=== PATIENT | male | born 1955 | race Caucasian/White ===

== ENCOUNTER → 2018-10-24 | Outpatient (CLI) | payer MEDICARE ==
--- NOTE | 2018-10-24 16:03 | RADIOLOGY REPORT (SQ) ---
EXAM DESCRIPTION: CT HEAD WITHOUT COMPLETED DATE/TIME: 10/24/2018 3:10 pm REASON FOR STUDY: PARESTHESIA OF SKIN (R20.2) R20.2 PARESTHESIA OF SKIN COMPARISON: None. TECHNIQUE: Axial images acquired through the brain without intravenous contrast. Images reviewed wi th bone, brain and subdural windows. Images stored on PACS. All CT scanners at this facility use dose modulation, iterative reconstruction, and/or weight based d osing when appropriate to reduce radiation dose to as low as reasonably achievable (ALARA). [facility]: Dose Right [facility]: CareDose [facility]: Dose Right [facility]: Teradose 4D [facility]: Hotlist RADIATION DOSE: CT Rad equipment meets quality standard of care and radiation dose reduction techniq ues were employed. CTDIvol: 48.5 mGy. DLP: 855 mGy-cm. mGy. LIMITATIONS: None. FINDINGS: VENTRICLES: Prominent. CEREBRUM: No masses. No hemorrhage. No midline shift. Old lacunar infarct right internal capsule. Areas of low density in the white matter most likely due to chronic micro-vascular ischemic change. No evidence for acute infarction. CEREBELLUM: No masses. No hemorrhage. No alteration of density. No evidence for acute infarction. EXTRAAXIAL SPACES: Mild age-related involutional change. No fluid collections. No masses. ORBITS AND GLOBE: No intra- or extraconal masses. Normal contour of globe without masses. CALVARIUM: No fracture. PARANASAL SINUSES: No fluid or mucosal thickening. SOFT TISSUES: No mass or hematoma. OTHER: No other significant finding. IMPRESSION: Chronic ischemic changes. EVIDENCE OF ACUTE STROKE: NO. TECHNICAL DOCUMENTATION: JOB ID: [id number] Quality ID # [id number]: Final reports with documentation of one or more dose reduction techniques (e.g., Au tomated exposure control, adjustment of the mA and/or kV according to patient size, use of iterative reconstruction technique) 2010 [employer]- All Rights Reserved Reading location - IP/workstation name: [email or web address]
== END ==
LOC: RAD 14:55
PROVIDERS: ATTEND Chiropractor
DX: R20.2 Paresthesia of skin (principal)
CPT/HCPCS: 70450

== ENCOUNTER 2018-11-01 19:09 | Inpatient (IN) | payer MEDICARE ==
[2018-11-01] MEDS ORDERED: LORAZEPAM INJ 2 MG/1 ML VIAL IV ONE (20:05)
[2018-11-01] MEDS ORDERED: NORMAL SALINE 1000 ML 1,000 ML IV ONE ×2 (20:05→22:28)
--- NOTE | 2018-11-01 20:06 | ER Document Report ---
ED Medical Screen (RME) - General Chief Complaint: Headache Stated Complaint: BLOOD PRESSEURE AND SUGAR ISSUES Time Seen by Provider: 11/01/18 19:56 Primary Care Provider: SALVADOR BOGGS DC [Primary Care Provider] - Follow up as needed Notes: 63 years old presents today with numbness and tingling sensation of the entire right half of the body for the last [address] scan done on the which was reported as negative. And also presents with elevated blood pressure and blood sugar. He appears to be very anxious. TRAVEL OUTSIDE OF THE [place] IN LAST 30 DAYS: No - Related Data Allergies/Adverse Reactions: No Known Allergies Allergy (Unverified 04/02/15 21:53) Past Medical History - Social History Chew tobacco use (# tins/day): No Frequency of alcohol use: None Drug Abuse: None - Past Medical History Cardiac Medical History: Reports: Hx Hypertension Endocrine Medical History: Reports: Hx Diabetes Mellitus Type 2 Renal/ Medical History: Denies: Hx Peritoneal Dialysis Past Surgical History: Reports: Hx Oral Surgery, Hx Orthopedic Surgery - knee Physical Exam - Vital signs Vitals: Temp Pulse Resp BP Pulse Ox 97.5 F 91 18 176/80 H 100 11/01/18 19:22 11/01/18 19:22 11/01/18 19:22 11/01/18 19:22 11/01/18 19:22 Course - Vital Signs Vital signs: Temp Pulse Resp BP Pulse Ox 97.5 F 91 18 176/80 H 100 11/01/18 19:22 11/01/18 19:22 11/01/18 19:22 11/01/18 19:22 11/01/18 19:22 Doctor's Discharge - Discharge Referrals: SALVADOR BOGGS DC [Primary Care Provider] - Follow up as needed
[2018-11-01 21:28] LABS: ABSOLUTE BASOPHILS # (AUTO) 0.1 10^3/uL (0.0-0.2); ABSOLUTE EOSINOPHILS # (AUTO) 0.2 10^3/uL (0.0-0.6); ABSOLUTE LYMPHOCYTES (AUTO) 2.3 10^3/uL (0.5-4.7); ABSOLUTE MONOCYTES (AUTO) 0.8 10^3/uL (0.1-1.4); BASOPHILS % (AUTO) 0.8 % (0-2); EOSINOPHILS % (AUTO) 1.7 % (0-6); HEMATOCRIT 45.7 % (37.9-51.0); HEMOGLOBIN 15.6 g/dL (13.5-17.0); LYMPHOCYTES % (AUTO) 24.8 % (13-45); MEAN CORPUSCULAR HEMOGLOBIN 27.4 pg (27.0-33.4); MEAN CORPUSCULAR HGB CONC 34.1 g/dL (32.0-36.0); MEAN CORPUSCULAR VOLUME 80 fl (80-97); MONOCYTES % (AUTO) 8.3 % (3-13); PLATELET COUNT 287 10^3/uL (150-450); RED CELL DISTRIBUTION WIDTH 14.2 % (11.5-14.0); SEGMENTED NEUTROPHILS % (AUTO) 64.4 % (42-78); TOTAL CELLS COUNTED % (AUTO) 100 %; WHITE BLOOD COUNT 9.2 10^3/uL (4.0-10.5)
[2018-11-01 21:33] LABS: APPEARANCE,URINE CLEAR; BILIRUBIN,URINE NEGATIVE (NEGATIVE); COLOR,URINE STRAW; GLUCOSE, URINE 50 mg/dL (NEGATIVE); KETONES,URINE TRACE mg/dL (NEGATIVE); LEUKOCYTE ESTERASE,URINE NEGATIVE (NEGATIVE); NITRITE,URINE NEGATIVE (NEGATIVE); PROTEIN,URINE >=500 mg/dL (NEGATIVE); URINE SPECIFIC GRAVITY 1.014; UROBILINOGEN,URINE NEGATIVE mg/dL (<2.0)
[2018-11-01 21:45] LABS: ALANINE AMINOTRANSFERASE 15 U/L (21-72); ALBUMIN 4.7 g/dL (3.5-5.0); ALKALINE PHOSPHATASE 57 U/L (38-126); ANION GAP 13 (5-19); ASPARTATE AMINO TRANSFERASE 23 U/L (17-59); BILIRUBIN,DIRECT 0.3 mg/dL (0.0-0.4); BILIRUBIN,TOTAL 0.4 mg/dL (0.2-1.3); BLOOD UREA NITROGEN 15 mg/dL (7-20); CALCIUM 10.3 mg/dL (8.4-10.2); CARBON DIOXIDE 28 mmol/L (22-30); CHLORIDE 97 mmol/L (98-107); GLUCOSE 175 mg/dL (75-110); POTASSIUM 4.7 mmol/L (3.6-5.0); SODIUM 137.8 mmol/L (137-145); TOTAL PROTEIN 7.5 g/dL (6.3-8.2)
[2018-11-01] MEDS ORDERED: METOCLOPRAMIDE HCL INJ/PF 10 MG/2 ML SDV IV ONE (22:27)
[2018-11-01] MEDS ORDERED: DIPHENHYDRAMINE HCL 50 MG/ML VIAL IV ONE (22:28)
[2018-11-01] MEDS ORDERED: LOSARTAN POTASSIUM 50 MG TABLET PO ONE (22:29)
[2018-11-01] MEDS ORDERED: MECLIZINE HCL 25 MG TABLET PO ONE (22:33)
--- NOTE | 2018-11-01 22:34 | ER Document Report ---
ED General - General Chief Complaint: Headache Stated Complaint: BLOOD PRESSEURE AND SUGAR ISSUES Time Seen by Provider: 11/01/18 19:56 Mode of Arrival: Ambulatory Information source: Patient, Relative, [facility] Records Notes: 63-year-old male with hypertension, type 2 diabetes presents with multiple complaints including right-sided numbness, dizziness, right-sided headache, nausea and generalized abdominal pain. Patient states that his right-sided numbness occurred 3 weeks ago and has been present since that time. Patient has been seen by his chiropractor and primary care physician for this and was recently prescribed gabapentin but has yet to fill his prescription. Patient did have a recent CAT scan of his head and cervical fine which he reports to be negative. Patient denies any fever, chills, slurred speech, difficulty with ambulation, weakness, recent illness. Prior to my exam patient did receive IV fluids and Ativan and reports an improvement of headache initially but it has returned. He describes it as a constant throbbing headache located behind his right eye. He denies any visual changes. Patient has yet to take his blood pressure medication. TRAVEL OUTSIDE OF THE [place] IN LAST 30 DAYS: No - HPI Onset: Other Onset/Duration: Gradual, Persistent Quality of pain: Stabbing Severity: Mild Associated symptoms: Headache, Nausea. denies: Chest pain, Chills, Nonproductive cough, Productive cough, Diarrhea, Earache, Fever, Hurts to breath, Vomiting, Shortness of breath, Sore throat, Weakness Exacerbated by: Denies Relieved by: Denies Similar symptoms previously: Yes Recently seen / treated by doctor: Yes - Related Data Allergies/Adverse Reactions: No Known Allergies Allergy (Unverified 04/02/15 21:53) Past Medical History - General Information source: Patient, Relative, [facility] Records - Social History Smoking Status: Never Smoker Chew tobacco use (# tins/day): No Frequency of alcohol use: None Drug Abuse: None Family History: Reviewed & Not Pertinent Patient has suicidal ideation: No Patient has homicidal ideation: No - Past Medical History Cardiac Medical History: Reports: Hx Hypertension Endocrine Medical History: Reports: Hx Diabetes Mellitus Type 2 Renal/ Medical History: Denies: Hx Peritoneal Dialysis Past Surgical History: Reports: Hx Oral Surgery, Hx Orthopedic Surgery - knee Review of Systems - Review of Systems Constitutional: denies: Fever, Weakness, Recent illness EENT: denies: Blurred vision, Throat pain, Difficulty swallowing Cardiovascular: Dizziness. denies: Chest pain, Palpitations, Syncope Gastrointestinal: Nausea, Poor appetite, Poor fluid intake. denies: Abdominal pain, Vomiting Genitourinary: denies: Dysuria, Flank pain Male Genitourinary: No symptoms reported Musculoskeletal: denies: Back pain, Muscle pain, Muscle stiffness, Ankle swelling Skin: denies: Rash Hematologic/Lymphatic: No symptoms reported Neurological/Psychological: Headaches, Numbness. denies: Confusion, Dementia, Weakness, Gait changes -: Yes All other systems reviewed and negative Physical Exam - Vital signs Vitals: Temp Pulse Resp BP Pulse Ox 97.5 F 91 18 176/80 H 100 11/01/18 19:22 11/01/18 19:22 11/01/18 19:22 11/01/18 19:22 11/01/18 19:22 Interpretation: Hypertensive - Notes Notes: PHYSICAL EXAMINATION: GENERAL: Well-appearing, well-nourished and in no acute distress. HEAD: Atraumatic, normocephalic. EYES: Pupils equal round and reactive to light, extraocular movements intact, sc aileen anicteric, conjunctiva are normal. ENT: Nares patent, oropharynx clear without exudates. Moist mucous membranes. NECK: Normal range of motion, supple without lymphadenopathy LUNGS: Breath sounds clear to auscultation bilaterally and equal. No wheezes rales or rhonchi. HEART: Regular rate and rhythm without murmurs ABDOMEN: Soft, nontender, nondistended abdomen. No guarding, no rebound. No masses appreciated. Musculoskeletal: Normal range of motion, no pitting or edema. No cyanosis. NEUROLOGICAL: Neuro exam Mental status; alert and oriented x3. Cranial nerves II through XII intact. Sensation intact to sharp/dull differentiation in all extremities. Motor; normal tone. No abnormal movements appreciated. No pronator drift. Strength tested and 5/5 in bilateral wrist flexion/extension, elbow flexion/extension, shoulder abduction, straight leg raise, knee flexion/extens ion, ankle dorsiflexion/plantar flexion. Patient ambulates with a steady gait. Coordination; no ataxia. Finger to nose and heel to martin testing intact bilaterally. Reflexes; brachial radialis, biceps, and patellar reflexes within normal limits and symmetric bilaterally. Babinski with downgoing toes bilaterally. NIH -0 PSYCH: Normal mood, normal affect. SKIN: Warm, Dry, normal turgor, no rashes or lesions noted. Course - Re-evaluation Re-evalutation: Laboratory 11/01/18 11/01/18 11/01/18 20:53 20:53 20:53 WBC 9.2 RBC 5.70 H Hgb 15.6 Hct 45.7 MCV 80 MCH 27.4 MCHC 34.1 RDW 14.2 H Plt Count 287 Seg Neutrophils % 64.4 Lymphocytes % 24.8 Monocytes % 8.3 Eosinophils % 1.7 Basophils % 0.8 Absolute Neutrophils 6.0 Absolute Lymphocytes 2.3 Absolute Monocytes 0.8 Absolute Eosinophils 0.2 Absolute Basophils 0.1 Sodium 137.8 Potassium 4.7 Chloride 97 L Carbon Dioxide 28 Anion Gap 13 BUN 15 Creatinine 0.63 Est GFR ( Amer) > 60 Est GFR (Non-Af Amer) > 60 Glucose 175 H Calcium 10.3 H Total Bilirubin 0.4 Direct Bilirubin 0.3 Neonat Total Bilirubin Not Reportable Neonat Direct Bilirubin Not Reportable Neonat Indirect Bili Not Reportable AST 23 ALT 15 L Alkaline Phosphatase 57 Total Protein 7.5 Albumin 4.7 Urine Color STRAW Urine Appearance CLEAR Urine pH 9.0 Ur Specific [place] 1.014 Urine Protein >=500 H Urine Glucose (UA) 50 H Urine Ketones TRACE H Urine Blood NEGATIVE Urine Nitrite NEGATIVE Urine Bilirubin NEGATIVE Urine Urobilinogen NEGATIVE Ur Leukocyte Esterase NEGATIVE Urine WBC (Auto) 3 Urine RBC (Auto) 15 Urine Mucus (Auto) RARE Urine Ascorbic Acid NEGATIVE Temp Pulse Resp BP Pulse Ox 97.5 F 91 18 176/80 H 100 11/01/18 19:22 11/01/18 19:22 11/01/18 19:22 11/01/18 19:22 11/01/18 19:22 Head MRI 11/01/18 22:28 IMPRESSION: 1. Acute lacunar infarction of the left posterior thalamus. 2. No acute intracranial hemorrhage. 3. Chronic microvascular ischemic disease. 11/01/18 22:35 63-year-old male presents with multiple complaints including right-sided numbness that has been present for 3 weeks, right-sided headache that has also been present for 3 weeks, nausea and abdominal discomfort as well as dizziness. Vital signs reviewed upon arrival and patient is hypertensive but admits to not taking his blood pressure medication today. Neuro exam was performed and NIH is 0. Patient has no focal abdominal tenderness, focal deficits. Previous medical records and nursing notes reviewed including recent imaging performed earlier this month. MRI pending 11/02/18 00:21 11/02/18 00:23 MRI obtained and significant for acute lacunar infarction of the left posterior thalamus. Discussed these findings with the patient who is agreeable to admission. Aspirin was administered. Patient's current blood pressure 193/92. Patient has been accepted by the hospitalist for the IMCU. - Vital Signs Vital signs: Temp Pulse Resp BP Pulse Ox 97.5 F 91 20 170/75 H 93 11/01/18 19:22 11/01/18 19:22 11/02/18 01:01 11/02/18 01:01 11/02/18 01:01 - Laboratory Result Diagrams: 11/01/18 20:53 11/01/18 20:53 Laboratory results interpreted by me: 11/01/18 11/01/18 11/01/18 20:53 20:53 20:53 RBC 5.70 H RDW 14.2 H Chloride 97 L Glucose 175 H Calcium 10.3 H ALT 15 L Urine Protein >=500 H Urine Glucose (UA) 50 H Urine Ketones TRACE H - Diagnostic Test Radiology reviewed: Image reviewed, Reports reviewed - EKG Interpretation by Me EKG shows normal: Sinus rhythm Rate: Normal Rhythm: NSR Heart block present: 1st Degree - T wave inversions in lead I and aVL which is unchanged from previous When compared to previous EKG there are: No significant change Discharge - Discharge Clinical Impression: Lacunar infarct, acute, Right-sided paresthesia, Nausea, Hyperglycemia, Elevated blood pressure reading Hypertension Qualifiers: Hypertension type: unspecified Qualified Code(s): I10 - Essential (primary) hypertension Condition: Good Disposition: ADMITTED INPATIENT Admitting Provider: Hospitalist Unit Admitted: IMCU ED NIH Stroke Scale - NIH Stroke Scale *: 1. NIH scale should be completed with appropriate accompanying assessment tools. *: 2. The NIH should reflect what the patient is capable of doing and should not be coached by the clinician. 1a. Level of Consciousness: 0=Alert;keenly responsive -: 1=Drowsy -: 2=Obtunded -: 3=Coma/unresponsive or reflex to noxious stimuli. 1a. Responses: 0 1b. Orientation Questions: a. What month is it? -: b. How old are you? -: 0=Answers both questions correctly. -: 1=Answers one question correctly or patient is intubated or has orotracheal trauma. -: 2=Answers neither question correctly. 1b. Responses: 0 1c. Response to commands: a. Open and close eyes? -: b. [employer] and release hand? -: Credit is given despite weakness. Demonstration of task is permitted. Substitute command if hands cannot be used. -: 0=Performs both tasks correctly -: 1=Performs one task correctly -: 2=Performs neither task correctly 1c. Responses: 0 2. Gaze: Establish eye contact and instruct patient to "Follow my finger" -: 0=Normal -: 1=Partial gaze palsy. Gaze is abnormal in one or both eyes, but where forced deviation or total gaze paresis is not present. -: 2=Forced deviation or total gaze paresis. 2. Responses: 0 3. Visual Goncalves: Sees fingers in all four quadrants. -: 0=No visual loss. -: 1=Partial hemianopsia. -: 2=Complete hemianopsia. -: 3=Bilateral hemianopsia (including Cortical blindness) 3. Responses: 0 4. Facial Movement: Instruct patient to: -: a. Show me your teeth -: b. Raise your eyebrows -: c. Close your eyes -: d. Smile -: 0=Normal symmetrical movement -: 1=Minor paralysis (flattened nasolabial fold, asymmetry on smiling). -: 2=Partial paralysis (total or near total paralysis of lower face). -: 3=Complete paralysis of upper and lower face 4. Responses: 0 5. Motor functions (left arm): Alternate sides and extend each arm with palms down (90 degrees if sitting or 45 degrees for supine). -: 0=No drift;limb holds for full 10 seconds. -: 1=Drift; limb holds but drifts down before full 10 seconds, but does not hit bed. -: 2=Some effort against gravity; limb cannot get to or maintain position. -: 3=No effort against gravity; limb falls. -: 4=No movement. -: UN=Amputation, joint fusion, explain in comments. 5. Responses (left arm): 0 5. Motor Functions (right arm): Alternate sides and extend each arm with palms down (90 degrees if sitting or 45 degrees for supine). -: 0=No drift;limb holds for full 10 seconds. -: 1=Drift; limb holds but drifts down before full 10 seconds, but does not hit bed. -: 2=Some effort against gravity; limb cannot get to or maintain position. -: 3=No effort against gravity; limb falls. -: 4=No movement. -: UN=Amputation, joint fusion, explain in comments. 5. Responses (right arm): 0 6. Motor Functions (left leg): With patient lying supine, alternate sides and extend each leg (30 degrees always while supine). -: 0=No drift, leg holds position for full 5 seconds -: 1=Drift; leg falls before full 5 seconds but does not hit bed. -: 2=Some effort against gravity, leg falls to bed but some effort against gravity. -: 3=No effort against gravity, leg falls to bed immediately. -: 4=No movement. -: UN=Amputation, joint fusion; explain in comments. 6. Responses (left leg): 0 6. Motor Functions (right leg): With patient lying supine, alternate sides and extend each leg (30 degrees always while supine). -: 0=No drift, leg holds position for full 5 seconds -: 1=Drift; leg falls before full 5 seconds but does not hit bed. -: 2=Some effort against gravity, leg falls to bed but some effort against gravity. -: 3=No effort against gravity, leg falls to bed immediately. -: 4=No movement. -: UN=Amputation, joint fusion; explain in comments. 6. Responses (right leg): 0 7. Limb Ataxia: With eyes open instruct patient to: -: a. "Touch your finger to your nose". -: b. "Touch your heel to your martin" -: 0=Absent -: 1=Present in one limb. -: 2=Present in two limbs. -: UN=Amputation or joint fusion; explain in comments. 7. Responses: 0 8. Sensory: Test sensation using pinprick or noxious stimuli. Test as many body parts as possible. -: 0=Normal;no sensory loss -: 1=Mile to moderate sensory loss (patient feels pin prick but is less sharp on affected side). -: 2=Severe or total sensory loss. 8. Responses: 0 9. Best Language: Instruct patient to: -: a. "Describe what you see in this picture." -: b. "Name the items in this picture." -: c. "Read these sentences." -: 0=No aphasia, normal -: 1=Mild to moderate aphasia. -: 2=Severe aphasia -: 3=Mute, global aphasia, no usable speech or auditory comprehension. 9. Responses: 0 10. Articulation, Dysarthia: Instruct patient to: -: "Read these words" or "Repeat these words" -: 0=Normal -: 1=Mild to moderate; patient may slur some words but can be understood without difficulty. -: 2=Severe; patients speech so slurred as to be unintelligible in the absence of dysphasia. -: UN=Intubated or other physical barrier, explain in comments. 10. Responses: 0 11. Extinction or inattention: 0=No abnormality -: 1= Visual, tactile, auditory, spatial, or personal inattention or extinction to bilateral simulation in one or the sensory modalities. -: 2=Profound dipika-inattention or dipika-inattention to more than one modality; does not recognize own hand. 11. Responses: 0 Total Score: 0
--- NOTE | 2018-11-01 23:45 | RADIOLOGY REPORT (SQ) ---
MR BRAIN WITHOUT IV CONTRAST HISTORY: Right-sided numbness. COMPARISON: None. TECHNIQUE: Multisequence, multiplanar MR imaging of the brain was performed without the administration of intravenous gadolinium. Motion artifact limits evaluation. FINDINGS: Diffuse involutional changes are present. There are scattered areas of T2/FLAIR hyperintense foci are seen in the supratentorial white matter, likely representing chronic microvascular ischemia. There is a focus of restricted diffusion in the left posterior thalamus consistent with acute lacunar infarction. There is no intracranial hemorrhage, extra-axial fluid collection, or mass. The brainstem, posterior fossa, and cervicomedullary junction are preserved. The intravascular flow voids are preserved. The orbits are unremarkable. No abnormality of the skull base or calvarium is seen. IMPRESSION: 1. Acute lacunar infarction of the left posterior thalamus. 2. No acute intracranial hemorrhage. 3. Chronic microvascular ischemic disease.
[2018-11-02] MEDS ORDERED: ASPIRIN 81 MG TABLET, CHEWABLE PO ONE (00:11)
[2018-11-02] MEDS ORDERED: DOCUSATE SODIUM 100 MG CAPSULE PO PRN (00:18)
[2018-11-02] MEDS ORDERED: ACETAMINOPHEN 325 MG TABLET PO PRN (00:18)
[2018-11-02] MEDS ORDERED: DEXTROSE 50%-WATER 25 GM/50 ML DISP.SYRIN IV PRN ×2 (00:18)
[2018-11-02] MEDS ORDERED: DEXTROSE 40% GEL 15 GM TUBE PO PRN ×2 (00:18)
[2018-11-02] MEDS ORDERED: GLUCAGON,HUMAN RECOMB 1 MG INJ IM PRN (00:18)
--- NOTE | 2018-11-02 00:56 | RADIOLOGY REPORT (SQ) ---
EXAM DESCRIPTION: XR CHEST 1 VIEW COMPLETED DATE/TME: 11/02/2018 00:05 CLINICAL HISTORY: 63 years Male, stroke protocol COMPARISON: 04/02/15 NUMBER OF VIEWS/TECHNIQUE: 1/AP FINDINGS: Increased lung volume, clear parenchyma, normal cardiac silhouette, and intact bony thorax. Atherosclerotic vascular disease. IMPRESSION: No acute cardiopulmonary findings.
[2018-11-02] MEDS ORDERED: HYDRALAZINE HCL INJ/PF 20 MG/1 ML SDV IV PRN (01:00)
[2018-11-02] MEDS ORDERED: ATORVASTATIN CALCIUM 80 MG TABLET PO ONE ×2 (01:00→05:30)
[2018-11-02 02:12] LABS: INTERNATIONAL RATION (INR) 0.92; PROTHROMBIN TIME 12.8 SEC (11.4-15.4)
[2018-11-02 02:13] LABS: PARTIAL THROMBOPLASTIN TIME 26.9 SEC (23.5-35.8)
[2018-11-02 03:14] LABS: CREATINE KINASE MB 1.34 ng/mL (<4.55); TROPONIN I 0.016 ng/mL
[2018-11-02] MEDS ORDERED: NORMAL SALINE 1000 ML 1,000 ML IV PRN (05:15)
--- NOTE | 2018-11-02 05:19 | RADIOLOGY REPORT (SQ) ---
EXAM DESCRIPTION: CT HEAD WITHOUT IV CONTRAST COMPLETED DATE/TME: 11/02/2018 00:00 CLINICAL HISTORY: 63 years Male, patient fell on floor COMPARISON: MRI, same day. TECHNIQUE: No contrast. Coronal and sagittal reformat. This exam was performed according to our departmental dose-optimization program, which includes automated exposure control, adjustment of the mA and/or kV according to patient size and/or use of iterative reconstruction technique. FINDINGS: No hemorrhage or infarct. No mass, mass effect, or midline shift. White matter microangiopathy, parenchymal volume loss, and atherosclerosis. Brain and extra-axial structures appear otherwise intact. IMPRESSION: No acute findings.
[2018-11-02] MEDS: HEPARIN SOD (PORCINE) 5,000 UNIT/ML 1 ML SYRINGE SUBCUT SCH ×3 (05:22→21:45)
--- NOTE | 2018-11-02 05:28 | PDOC H&P ---
History of Present Illness Admission Date/PCP: 11/02/18 00:58 Patient complains of: Right-sided headache, numbness and weakness. History of Present Illness: ZACH RAMOS is a 63 year old male with a past medical history of hypertension, diabetes and dyslipidemia. Patient presents after 3 weeks of persistent right sided numbness prompting him to seek evaluation with primary care 1 week ago after an episode of dysarthria and right-sided weakness. Patient reports CT head was unremarkable. Over the last 24 hours patient has complained of right sided retro-orbital headache, dizziness and right-sided weakness. In the emergency room he is found to have an acute lacunar infarct. He is started on aspirin and referred to the hospitalist for admission. Patient admits poor control of blood pressure, hyperglycemia and is unclear of his medication regiment. He denies previous episode. Past Medical History Cardiac Medical History: Reports: Hypertension Endocrine Medical History: Reports: Diabetes Mellitus Type 2 Psychiatric Medical History: Denies: Depression Past Surgical History Past Surgical History: Reports: Orthopedic Surgery - knee Social History Information Source: Patient Smoking Status: Former Smoker Number of Years Smokin Last Time Smoked: 2013 Frequency of Alcohol Use: None Hx Recreational Drug Use: No Drugs: None Hx Prescription Drug Abuse: No - Advance Directive Resuscitation Status: Full Code Family History Family History: COPD, Hypertension Parental Family History Reviewed: Yes Children Family History Reviewed: Yes Sibling(s) Family History Reviewed.: Yes Medication/Allergy Home Medications: Metformin HCl [Metformin HCl ER] 1,000 mg PO BID 04/03/15 Pravastatin Sodium [Pravachol] 40 mg PO QHS 04/03/15 Insulin Glargine,Hum.rec.anlog [Lantus] 5 unit SQ QHS #150 ml 04/05/15 Lisinopril/Hydrochlorothiazide [Lisinopril-Hctz 20-25 mg Tab] 1 each PO BID #60 tablet 04/05/15 Amox Tr/Potassium Clavulanate [Augmentin 875-125 mg Tablet] 1 tab PO BID #20 tablet 04/06/15 Oxycodone HCl/Acetaminophen [Percocet 5-325 mg Tablet] 2 tab PO Q4HP PRN #30 tablet 04/06/15 Allergies/Adverse Reactions: No Known Allergies Allergy (Unverified 04/02/15 21:53) Review of Systems Constitutional: PRESENT: as per HPI, fatigue, weakness Eyes: ABSENT: visual disturbances Ears: ABSENT: hearing changes Cardiovascular: PRESENT: as per HPI. ABSENT: chest pain, dyspnea on exertion, edema, orthropnea, palpitations Respiratory: ABSENT: cough, hemoptysis Gastrointestinal: ABSENT: abdominal pain, constipation, diarrhea, hematemesis, hematochezia, nausea, vomiting Genitourinary: ABSENT: dysuria, hematuria Musculoskeletal: PRESENT: as per HPI, muscle weakness. ABSENT: back pain Integumentary: ABSENT: rash, wounds Neurological: PRESENT: as per HPI, abnormal gait, dizziness, focal weakness, numbness, paresthesias, tingling, weakness. ABSENT: abnormal movements, abnormal speech, confusion, convulsions, frequent falls, lack of coordination Psychiatric: ABSENT: anxiety, depression, homidical ideation, suicidal ideation Endocrine: ABSENT: cold intolerance, heat intolerance, polydipsia, polyuria Hematologic/Lymphatic: ABSENT: easy bleeding, easy bruising Physical Exam Vital Signs: Temp Pulse Resp BP Pulse Ox 98.0 F 102 H 18 104/73 100 11/02/18 04:27 11/02/18 04:27 11/02/18 04:27 11/02/18 04:27 11/02/18 04:27 Intake & Output 10/31/18 11/01/18 11/02/18 11:59 11:59 11:59 Intake Total 1999 Balance 1999 Weight 98.1 kg General appearance: PRESENT: no acute distress, cooperative, obese. ABSENT: disheveled Head exam: PRESENT: atraumatic, normocephalic Eye exam: PRESENT: conjunctiva pink, EOMI, PERRLA. ABSENT: scleral icterus Ear exam: PRESENT: normal external ear exam Mouth exam: PRESENT: moist, tongue midline Neck exam: ABSENT: carotid bruit, JVD, lymphadenopathy, thyromegaly Respiratory exam: PRESENT: clear to auscultation anibal. ABSENT: rales, rhonchi, wheezes Cardiovascular exam: PRESENT: RRR. ABSENT: diastolic murmur, rubs, systolic murmur Pulses: PRESENT: normal dorsalis pedis pul Vascular exam: PRESENT: normal capillary refill GI/Abdominal exam: PRESENT: normal bowel sounds, soft. ABSENT: distended, guarding, mass, organolmegaly, rebound, tenderness Rectal exam: PRESENT: deferred Extremities exam: PRESENT: full ROM. ABSENT: calf tenderness, clubbing, joint s welling, pedal edema, tenderness Musculoskeletal exam: PRESENT: full ROM. ABSENT: ambulatory, deformity, dislocation, tenderness Neurological exam: PRESENT: alert, altered, awake, oriented to person, oriented to place, oriented to time, oriented to situation, reflexes normal, ataxia, CN II-XII grossly intact, motor sensory deficit. ABSENT: aphasic Psychiatric exam: PRESENT: appropriate affect, normal mood. ABSENT: homicidal ideation, suicidal ideation Skin exam: PRESENT: dry, intact, warm. ABSENT: cyanosis, rash Results Laboratory Results: 11/01/18 20:53 11/01/18 20:53 11/01/18 11/01/18 11/01/18 20:53 20:53 20:53 WBC 9.2 RBC 5.70 H Hgb 15.6 Hct 45.7 MCV 80 MCH 27.4 MCHC 34.1 RDW 14.2 H Plt Count 287 Seg Neutrophils % 64.4 Lymphocytes % 24.8 Monocytes % 8.3 Eosinophils % 1.7 Basophils % 0.8 Absolute Neutrophils 6.0 Absolute Lymphocytes 2.3 Absolute Monocytes 0.8 Absolute Eosinophils 0.2 Absolute Basophils 0.1 Sodium 137.8 Potassium 4.7 Chloride 97 L Carbon Dioxide 28 Anion Gap 13 BUN 15 Creatinine 0.63 Est GFR ( Amer) > 60 Est GFR (Non-Af Amer) > 60 Glucose 175 H Calcium 10.3 H Total Bilirubin 0.4 AST 23 ALT 15 L Alkaline Phosphatase 57 Total Protein 7.5 Albumin 4.7 Urine Color STRAW Urine Appearance CLEAR Urine pH 9.0 Ur Specific Patterson 1.014 Urine Protein >=500 H Urine Glucose (UA) 50 H Urine Ketones TRACE H Urine Blood NEGATIVE Urine Nitrite NEGATIVE Ur Leukocyte Esterase NEGATIVE Urine WBC (Auto) 3 Urine RBC (Auto) 15 11/01/18 20:53 WBC RBC Hgb Hct MCV MCH MCHC RDW Plt Count Seg Neutrophils % Lymphocytes % Monocytes % Eosinophils % Basophils % Absolute Neutrophils Absolute Lymphocytes Absolute Monocytes Absolute Eosinophils Absolute Basophils Sodium Cancelled Potassium Cancelled Chloride Cancelled Carbon Dioxide Cancelled Anion Gap Cancelled BUN Cancelled Creatinine Cancelled Est GFR ( Amer) Cancelled Est GFR (Non-Af Amer) Cancelled Glucose Cancelled Calcium Cancelled Total Bilirubin Cancelled AST Cancelled ALT Cancelled Alkaline Phosphatase Cancelled Total Protein Cancelled Albumin Cancelled Urine Color Urine Appearance Urine pH Ur Specific Patterson Urine Protein Urine Glucose (UA) Urine Ketones Urine Blood Urine Nitrite Ur Leukocyte Esterase Urine WBC (Auto) Urine RBC (Auto) 11/01/18 11/01/18 02:40 20:53 Creatine Kinase 120 CK-MB (CK-2) 1.34 Troponin I 0.016 Impressions: Head MRI 11/01/18 22:28 IMPRESSION: 1. Acute lacunar infarction of the left posterior thalamus. 2. No acute intracranial hemorrhage. 3. Chronic microvascular ischemic disease. Chest X-Ray 11/02/18 00:05 IMPRESSION: No acute cardiopulmonary findings. Assessment & Plan - Diagnosis (1) Lacunar infarct, acute Is this a current diagnosis for this admission?: Yes Plan: CVA care set, aspirin, statin, permissive hypertension, follow-up MRI head, carotid Doppler, A1c and lipid profile. (2) Ataxia Is this a current diagnosis for this admission?: Yes Plan: Secondary to #1, physical therapy ordered (3) Diabetes Is this a current diagnosis for this admission?: Yes Plan: Sliding scale insulin ordered, follow-up A1c (4) Hyperlipidemia Is this a current diagnosis for this admission?: Yes Plan: Statin ordered, follow-up lipid profile - Time Time Spent: 50 to 70 Minutes - Inpatient Certification Medical Necessity: Need Close Monitoring Due to Risk of Patient Decompensation
--- NOTE | 2018-11-02 07:34 | EKG REPORT ---
SEVERITY:- ABNORMAL ECG - SINUS RHYTHM FIRST DEGREE AV BLOCK PROBABLE INFERIOR INFARCT, OLD LATERAL LEADS ARE ALSO INVOLVED : Confirmed by: Love Prado MD 02-Nov-2018 07:33:20
[2018-11-02] MEDS: INSULIN LISPRO 100 UNIT/ML 3 ML VIAL SUBCUT SCH ×3 (07:40→17:46)
[2018-11-02 08:45] LABS: ALANINE AMINOTRANSFERASE 25 U/L (21-72); ALKALINE PHOSPHATASE 47 U/L (38-126); ANION GAP 10 (5-19); ASPARTATE AMINO TRANSFERASE 23 U/L (17-59); BILIRUBIN,DIRECT 0.3 mg/dL (0.0-0.4); BILIRUBIN,TOTAL 0.5 mg/dL (0.2-1.3); BLOOD UREA NITROGEN 14 mg/dL (7-20); CALCIUM 9.5 mg/dL (8.4-10.2); CARBON DIOXIDE 26 mmol/L (22-30); CHLORIDE 102 mmol/L (98-107); CHOLESTEROL 122.08 mg/dL (0-200); GLUCOSE 136 mg/dL (75-110); POTASSIUM 4.5 mmol/L (3.6-5.0); SODIUM 137.9 mmol/L (137-145); TOTAL PROTEIN 6.5 g/dL (6.3-8.2); TRIGLYCERIDES 142 mg/dL (<150)
[2018-11-02 08:56] LABS: DIRECT LDL 63 mg/dL (<100)
[2018-11-02] MEDS: ASPIRIN 81 MG TABLET, ENT COATED PO SCH (09:40)
--- NOTE | 2018-11-02 11:43 | RADIOLOGY REPORT (SQ) ---
EXAM DESCRIPTION: CAROTID DOPPLER COMPLETED DATE/TIME: 11/02/2018 11:30 am REASON FOR STUDY: cva COMPARISON: None. TECHNIQUE: Grayscale ultrasound, Doppler velocity and spectra, and color Doppler images acquired of the extra-cranial carotid and vertebral arteries. Images stored on PACS. LIMITATIONS: None. FINDINGS: RIGHT CAROTID CCA Velocities: Within normal limits. ICA Velocities Peak systolic 2.04 m/s. End diastolic 0.49 m/s. Proximal ICA/CCA peak systolic ratio 2.8. There is homogeneous plaque in the proximal ICA. LEFT CAROTID CCA Velocities: Within normal limits. ICA Velocities Peak systolic 0.88 m/s. End diastolic 0.32 m/s. Proximal ICA/CCA peak systolic ratio 0.9. There is calcified plaque in the carotid bulb and proximal ICA. VERTEBRAL ARTERIES: Antegrade flow. Normal waveforms. SUBCLAVIAN ARTERIES: No finding. OTHER: No other significant finding. IMPRESSION: 1. 50 to 69% stenosis in the right internal carotid artery. Grayscale images demonstra te significant lumen narrowing. Correlation with CT angiography may be beneficial for further evalua tion. 2. Calcified plaque in the left carotid bulb and proximal ICA. No hemodynamically significant steno sis. COMMENT: Quality ID #[id number]: Velocity criteria are extrapolated from the diameter data as defined by t he Society of Radiologists in Ultrasound Consensus Conference. Radiology 2003: 229; 340-346. TECHNICAL DOCUMENTATION: JOB ID: [id number] [employer]- All Rights Reserved Reading location - IP/workstation name: [email or web address]
[2018-11-02] MEDS: INSULIN GLARGINE,HUM.REC.ANLOG 1,000 UNIT/10 ML UNIT SUBCUT ONE ×2 (13:34→13:35)
[2018-11-02] MEDS: INSULIN GLARGINE,HUM.REC.ANLOG 300 UNIT/3 ML INSULN.PEN SUBCUT SCH ×2 (13:35→21:57)
[2018-11-02] MEDS ORDERED: ATORVASTATIN CALCIUM 80 MG TABLET PO SCH (22:00)
[2018-11-03] MEDS: HEPARIN SOD (PORCINE) 5,000 UNIT/ML 1 ML SYRINGE SUBCUT SCH (05:50)
[2018-11-03 06:16] LABS: ALANINE AMINOTRANSFERASE 24 U/L (21-72); ALBUMIN 3.9 g/dL (3.5-5.0); ALKALINE PHOSPHATASE 45 U/L (38-126); ANION GAP 10 (5-19); ASPARTATE AMINO TRANSFERASE 21 U/L (17-59); BILIRUBIN,DIRECT 0.2 mg/dL (0.0-0.4); BILIRUBIN,TOTAL 0.4 mg/dL (0.2-1.3); BLOOD UREA NITROGEN 20 mg/dL (7-20); CALCIUM 9.5 mg/dL (8.4-10.2); CARBON DIOXIDE 27 mmol/L (22-30); CHLORIDE 103 mmol/L (98-107); GLUCOSE 199 mg/dL (75-110); SODIUM 139.6 mmol/L (137-145); TOTAL PROTEIN 6.5 g/dL (6.3-8.2)
[2018-11-03] MEDS: INSULIN LISPRO 100 UNIT/ML 3 ML VIAL SUBCUT SCH ×2 (08:08→12:05)
[2018-11-03] MEDS: ASPIRIN 81 MG TABLET, ENT COATED PO SCH (10:09)
[2018-11-03] MEDS: INSULIN GLARGINE,HUM.REC.ANLOG 300 UNIT/3 ML INSULN.PEN SUBCUT SCH (10:09)
[2018-11-03 12:49] VITALS: BP 112/62
--- NOTE | 2018-11-03 14:51 | PDOC DISCHARGE SUMMARY ---
General - Admit/Disc Date/PCP Admission Date/Primary Care Provider: 11/02/18 00:58 Discharge Date: 11/03/18 - Discharge Diagnosis (1) Lacunar infarct, acute Is this a current diagnosis for this admission?: Yes Summary: Came into the hospital because he had right-sided numbness that been going on for quite some time. Was found to have a left thalamic lacunar stroke. Was already on an aspirin, statin, antihypertensive medication. He is insulin- dependent diabetic on appropriate medications. He was seen by physical therapy they recommended that he ambulate with a walker and get outpatient physical therapy. (2) Diabetes Is this a current diagnosis for this admission?: Yes Summary: We encouraged aggressive lifestyle modification and strict dietary adherence along with his insulin and metformin. (3) Hyperlipidemia Is this a current diagnosis for this admission?: Yes Summary: Continues Crestor (4) Hypertension Is this a current diagnosis for this admission?: Yes Summary: Continue losartan. He will need to make sure he keeps an eye on this and make sure it stays at goal given his history of stroke and diabetes. - Additional Information Resuscitation Status: Full Code Discharge Diet: Cardiac, Diabetic Discharge Activity: Activity As Tolerated, Supervised Activity Home Medications: Metformin HCl [Metformin HCl ER] 1,000 mg PO BID 04/03/15 Aspirin [Aspirin 81 mg Chewable Tablet] 81 mg PO DAILY 11/02/18 Insulin Glargine,Hum.rec.anlog [Lantus] 20 unit SQ BID 11/02/18 Losartan Potassium [Cozaar 100 mg Tablet] 100 mg PO DAILY 11/02/18 Multivitamin [Multiple Vitamins] 1 each PO DAILY 11/02/18 Naproxen Sodium [Aleve] 220 mg PO PRN PRN 11/02/18 Rosuvastatin Calcium [Crestor] 40 mg PO QHS 11/02/18 History of Present Illness History of Present Illness: ZACH RAMOS is a 63 year old male with a past medical history of hypertension, diabetes and dyslipidemia. Patient presents after 3 weeks of persistent right sided numbness prompting him to seek evaluation with primary care 1 week ago after an episode of dysarthria and right-sided weakness. Patient reports CT head was unremarkable. Over the last 24 hours patient has complained of right sided retro-orbital headache, dizziness and right-sided weakness. In the emergency room he is found to have an acute lacunar infarct. He is started on aspirin and referred to the hospitalist for admission. Patient admits poor control of blood pressure, hyperglycemia and is unclear of his medication regiment. He denies previous episode. Hospital Course Hospital Course: He was asymptomatic by the time I saw him. He is already on aspirin and a statin medication at home. He was encouraged to keep close watch on his blood pressure and to make sure that he manages his diabetes well as an outpatient to further reduce his risk of another episode. He was seen by PT, OT, and speech therapy, and did well for all of them. Physical therapy recommended that he use a walker at home and walk with assistance, and that he do outpatient physical therapy. His labs and examination were reassuring and he was discharged in good condition. Physical Exam Vital Signs: Temp Pulse Resp BP Pulse Ox 97.6 F 69 16 112/62 99 11/03/18 11:55 11/03/18 12:00 11/03/18 12:00 11/03/18 12:00 11/03/18 12:00 Intake & Output 11/02/18 11/03/18 11/04/18 06:59 06:59 06:59 Intake Total 2000 Output Total 0 250 Balance 2000 -250 Weight 96.1 kg 96.3 kg General appearance: PRESENT: no acute distress, cooperative, obese Respiratory exam: PRESENT: clear to auscultation anibal, symmetrical, unlabored. ABSENT: accessory muscle use, crackles, prolonged expiratory phas, rhonchi, tachypnea, wheezes Cardiovascular exam: PRESENT: RRR, +S1, +S2 Vascular exam: PRESENT: normal capillary refill GI/Abdominal exam: PRESENT: normal bowel sounds, soft. ABSENT: distended, guarding, rebound, tenderness Extremities exam: ABSENT: clubbing, pedal edema Musculoskeletal exam: PRESENT: normal inspection. ABSENT: deformity Neurological exam: PRESENT: alert, awake, oriented to person, oriented to place, oriented to time, oriented to situation, CN II-XII grossly intact Psychiatric exam: PRESENT: appropriate affect, normal mood Skin exam: PRESENT: dry, warm Results Laboratory Results: 11/01/18 20:53 11/03/18 05:17 11/03/18 05:17 Sodium 139.6 Potassium 5.0 Chloride 103 Carbon Dioxide 27 Anion Gap 10 BUN 20 Creatinine 0.83 Est GFR ( Amer) > 60 Est GFR (Non-Af Amer) > 60 Glucose 199 H Calcium 9.5 Total Bilirubin 0.4 AST 21 ALT 24 Alkaline Phosphatase 45 Total Protein 6.5 Albumin 3.9 11/01/18 11/01/18 02:40 20:53 Creatine Kinase 120 CK-MB (CK-2) 1.34 Troponin I 0.016 Impressions: Head MRI 11/01/18 22:28 IMPRESSION: 1. Acute lacunar infarction of the left posterior thalamus. 2. No acute intracranial hemorrhage. 3. Chronic microvascular ischemic disease. Head CT 11/02/18 00:00 IMPRESSION: No acute findings. Chest X-Ray 11/02/18 00:05 IMPRESSION: No acute cardiopulmonary findings. Carotid Doppler Study 11/02/18 00:19 IMPRESSION: 1. 50 to 69% stenosis in the right internal carotid artery. Grayscale images demonstrate significant lumen narrowing. Correlation with CT angiography may be beneficial for further evaluation. 2. Calcified plaque in the left carotid bulb and proximal ICA. No hemodynamically significant stenosis. Qualifiers - * PATIENT BEING DISCHARGED WITH ANY OF THE FOLLOWING DIAGNOSIS: Stroke Stroke Pt being discharged on Anti-thrombolytic therapy?: Yes Stroke Pt being discharged on Anti-coagulation therapy?: No Reason(s) for not prescribing Anti-coagulation therapy:: Not indicated Stroke Pt being discharged on Statins?: Yes
== END 2018-11-03 13:43 | disposition home or self-care (01) | DRG 66 ==
LOC: ER 19:09 → EH 11-02 00:58 → 3S 11-02 04:29
PROVIDERS: ADMIT Internal Medicine; ATTEND Internal Medicine
DX: I63.81 Other cerebral infarction due to occlusion or stenosis of small artery (principal); I10 Essential (primary) hypertension; E11.9 Type 2 diabetes mellitus without complications; R27.8 Other lack of coordination; R20.0 Anesthesia of skin; Z87.891 Personal history of nicotine dependence; Z79.4 Long term (current) use of insulin; Z79.899 Other long term (current) drug therapy; Z23 Encounter for immunization
CPT/HCPCS: 36415; 70450; 70551; 71045; 80053; 80061; 81001; 82550; 82553; 82962; 84484; 85025; 85610; 85730; 90686; 93005; 93010; 93880; 96361; 96374; 96375; 99285; J1200; J1644; J1815; J2060; J2765; J3490; J7030

== ENCOUNTER → 2019-10-21 | Outpatient (CLI) | payer MEDICARE | LOC: OD 08:44 | PROVIDERS: ATTEND Internal Medicine Nephrology | DX: E87.5 Hyperkalemia (principal) | CPT/HCPCS: 36415; 84132 ==